=== PATIENT | male | born 1950 | race Caucasian/White ===

== ENCOUNTER 2017-01-19 06:42 | Emergency (ER) | payer OTHER, MEDICAID ==
[~2017-01-19] VITALS: Ht 180.3 cm; Wt 100.0 kg
[~2017-01-19 06:42] MED LIST: ALBU8.5H IH; DSS100 PO; FOLI1 PO; FURO20 PO; KETO.5OS OD; LACT30L PO; LEVO500P7 IV; METO-296 PO; MOM30 PO; NYST30O TP; OMEP20 PO; PANT40TA25 PO; PERCT PO; PREDAOS OD; RIFAX550 PO; SPIR25 PO; THIA100 PO
[2017-01-19] MEDS ORDERED: LOPE2 PO (07:25)
[2017-01-19] MEDS ORDERED: ACET-66 PO (07:25)
[2017-01-19] MEDS ORDERED: MELA1TAB25 PO (07:25)
[2017-01-19] MEDS ORDERED: HYDR-305 PO (07:25)
[2017-01-19] MEDS ORDERED: GUAIF10 PO (07:25)
[2017-01-19] MEDS ORDERED: METO25 PO (07:25)
[2017-01-19] MEDS ORDERED: TAMS0.4C32 PO (07:25)
[2017-01-19] MEDS ORDERED: ACET-784 PO (07:25)
[2017-01-19] MEDS ORDERED: MAGN500C4 PO (07:25)
[2017-01-19] MEDS ORDERED: GABA-531 PO (07:25)
[2017-01-19 07:50] LABS: ANION GAP 8 mmol/L (8-16); CALCIUM, TOTAL 8.2 mg/dL (8.8-10.5); CARBON DIOXIDE 26 mmol/L (22-29); CHLORIDE 108 mmol/L (98-107); CREATININE 0.83 mg/dL (0.60-1.30); GLOMERULAR FILTR. RATE CALC > 60 mL/min (>60); POTASSIUM 3.5 mmol/L (3.5-5.1); SODIUM SERUM 142 mmol/L (136-145); UREA NITROGEN, BLOOD 12 mg/dL (7-18)
[2017-01-19 07:57] LABS: ALANINE AMINOTRANSFERASE 25 U/L (12-78); ALBUMIN 2.8 g/dL (3.4-5.0); ASPARTATE AMINOTRANSFERASE 44 U/L (15-37); BILIRUBIN,TOTAL 1.9 mg/dL (0.1-1.0); TOTAL PROTEIN, SERUM 6.9 g/dL (6.4-8.2)
[2017-01-19 07:57] LABS: BASOPHILS # (AUTO) 0.01 K/uL (0.00-0.20); BASOPHILS % (AUTO) 0.3 % (0.0-2.0); EOSINOPHILS # (AUTO) 0.08 K/uL (0.00-0.70); HEMATOCRIT 35.2 % (41-53); LYMPHOCYTES # (AUTO) 1.1 K/uL (1.0-4.8); LYMPHOCYTES % (AUTO) 34.1 % (22.0-44.0); MEAN CORPUSCULAR HEMOGLOBIN 34.3 pg (26.0-34.0); MEAN CORPUSCULAR HGB CONC 34.2 G/dL (31.0-37.0); MEAN CORPUSCULAR VOLUME 100 fL (80-100); MONOCYTES # (AUTO) 0.4 K/uL (0.1-1.0); MONOCYTES % (AUTO) 11.4 % (2.0-9.0); NEUTROPHILS # (AUTO) 1.7 K/uL (1.8-7.7); NEUTROPHILS % (AUTO) 51.7 % (40.0-70.0); RED CELL DISTRIBUTION WIDTH 16.5 % (11.5-14.5); WHITE BLOOD COUNT (AUTO) 3.3 K/uL (4.5-11.0)
[2017-01-19 08:03] LABS: PLATELET COUNT (AUTO) 62 K/uL (150-450)
[2017-01-19 09:50] VITALS: BP 135/66
[2017-01-19 11:15] LABS: RBC MORPHOLOGY COMMENT ABNORMAL RBC MORPH
== END 2017-01-19 11:11 | disposition home or self-care (01) ==
LOC: EMS 06:43
DX: K94.03 Colostomy malfunction (principal); J45.909 Unspecified asthma, uncomplicated; E11.9 Type 2 diabetes mellitus without complications; I10 Essential (primary) hypertension; F17.210 Nicotine dependence, cigarettes, uncomplicated; C18.9 Malignant neoplasm of colon, unspecified; Z85.038 Personal history of other malignant neoplasm of large intestine; Z88.0 Allergy status to penicillin
CPT/HCPCS: 74022; 99285